=== PATIENT | female | born 2000 | race Caucasian/White ===

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

== ENCOUNTER 2025-02-20 00:24 | Emergency (ER) | payer OTHER, SELFPAY ==
[2025-02-20 00:32] VITALS: BP 146/98; PULSE 100; RESP 18; TEMP 36.6; O2SAT 98; BMI 51.0
[2025-02-20 02:17] LABS: MANUAL DIFF FLAG NO
[2025-02-20 02:18] LABS: Basophils Absolute Auto 0.1 X10*3/uL (0.0-0.2); Basophils Percent Auto 0.4 % (0-2); Eosinophils Absolute Auto 0.3 X10*3/uL (0.0-0.4); Eosinophils Percent Auto 2.6 % (0-4); Hematocrit 40.3 % (37.0-47.0); Hemoglobin 13.4 g/dl (12.0-16.0); Imm Gran Abs Auto 0.06 X10*3/uL (0.00-0.03); Imm Gran Pct Auto 0.5 % (0.0-0.4); Lymphocytes Absolute Auto 3.2 X10*3/uL (1.2-4.9); Lymphocytes Percent Auto 25.6 % (20-40); Mean Corpuscular HGB Conc 33.3 g/dl (31.0-35.0); Mean Corpuscular Hemoglobin 29.3 pg (27.0-33.0); Mean Corpuscular Volume 88.2 fL (80.0-98.0); Mean Platelet Volume 9.4 fL (9.4-12.3); Monocytes Percent Auto 8.3 % (2-11); Neutrophils Absolute Auto 7.9 x10*3/uL (2.0-8.3); Neutrophils Percent Auto 62.6 % (45-73); Platelet Count 350 X10*3/uL (160-400); Red Blood Count 4.57 X10*6/uL (4.20-5.50); Red Cell Distribution Width 13.3 % (11.0-16.0); White Blood Count 12.6 X10*3/uL (4.8-10.8)
[2025-02-20 02:25] LABS: IDNOW Serial# 6674DD1D; Strep A Nucleic Acid Negative (Negative)
[2025-02-20 02:40] LABS: Alanine Aminotransferase 44 U/L (0-31); Albumin Level 3.8 g/dL (3.5-5.0); Alkaline Phosphatase 96 U/L (39-117); Anion Gap 12 (12-20); Aspartate Amino Transferase 27 U/L (5-31); Bilirubin Total 0.5 mg/dL (0.0-1.0); Blood Urea Nitrogen 11 mg/dL (9-16); Calcium 8.7 mg/dL (8.4-10.2); Carbon Dioxide 27 mmol/L (22-29); Chloride 106 mmol/L (96-108); Estimated Glomerular Filt Rate > 60; Glucose Random 165 mg/dL (60-115); Potassium 3.6 mmol/L (3.3-5.1); Sodium 141 mmol/L (135-145); Total Protein 7.1 g/dL (6.5-8.0)
[2025-02-20 02:54] LABS: Influenza A PCR NEGATIVE (Negative); Influenza B PCR NEGATIVE (Negative); Resp Syncy Virus RNA Qual PCR NEGATIVE (Negative); SARS COV2 PCR INHOUSE NEGATIVE (Negative)
[2025-02-20 03:39] VITALS: BP 116/70; PULSE 99; RESP 20; TEMP 36.8; O2SAT 99
--- NOTE | 2025-02-20 03:54 | PC.NURSE ---
no vomiting noted since arrival. vss. pt awaiting primary eval by ed provider.
--- NOTE | 2025-02-20 05:29 | PC.NURSE ---
pt aware and agreeable to waiting for primary ed provider eval. pt requested light off and door closed, states wants to sleep while waiting. nad. call [facility] within reach.
[2025-02-20 08:00] VITALS: BP 140/70; PULSE 90; RESP 16; TEMP 36.4; O2SAT 96
--- NOTE | 2025-02-20 08:29 | ED.URI ---
HPI - URI/Sore Throat General Chief Complaint: Upper Respiratory Symptoms Stated Complaint: vomiting Time Seen by Provider: 02/20/25 08:07 Source: patient, RN notes reviewed and old records reviewed Mode of arrival: ambulatory History of Present Illness ED Provider: Sabiha Blanca PA-C HPI Narrative: 24-year-old female with a past medical history of ADHD, depression, anxiety, PCOS, presenting to the ED complaining of nasal congestion, rhinorrhea, headache, dry cough, nausea, vomiting, post-tussive emesis x 3 days. Denies fever, chills, ear pain, abdominal pain, diarrhea, dysuria /hematuria, travel, sick contacts, CP/SOB Related Data Previous Rx's ?Medication ?Instructions ?Recorded cetirizine 10 mg capsule 10 mg PO DAILY PRN allergy 07/08/20 symptoms #20 caps sulfacetamide sodium 10 % eye drops 1 drp ophthalmic (eye) Q3H #15 mL 07/08/20 prednisone 20 mg tablet 40 mg (2 x 20 mg) PO DAILY #10 tabs 07/27/20 benzonatate 100 mg capsule 100 mg PO TID PRN cough #14 caps 02/20/25 fluticasone propionate 50 2 spray intranasal DAILY #16 grams 02/20/25 mcg/actuation nasal spray,suspension (Flonase Allergy Relief) Allergies Allergy/AdvReac Type Severity Reaction Status Date / Time No Known Allergies Allergy Verified 02/20/25 00:34 [No Known Allergies*] Review of Systems Review of Systems: Yes all other systems are reviewed and are negative Constitutional: Constitutional: Reports as per [facility] Past Medical History Attestation statement: The following information was validated with the patient. Source: old records reviewed Medical History ADHD Depression Anxiety PCOS (polycystic ovarian syndrome) Social History Social History Advance Directives: No Advance Directives Information Provided: No Do you have a plan to hurt others: No Plan Physical Exam Vital Signs: Vital Signs: Last Vital Signs Temp 97.6 F 02/20/25 08:45 Pulse 90 02/20/25 08:45 Resp 16 02/20/25 08:45 BP 140/70 H 02/20/25 08:45 Pulse Ox 96 02/20/25 08:45 O2 Del Method Room Air 02/20/25 08:45 BMI result Body Mass Index 51.0 Const: General: cooperative, healthy appearing and no acute distress Orientation/consciousness: patient oriented x3 Limitations: no limitations HEENT: Head: Yes normal to inspection and Yes atraumatic Ears: hearing grossly normal bilaterally, external ears normal and TM's normal bilaterally General nose exam: Normal external nose present Face and sinus: Yes normal facial exam Mouth: Normal oral and palatal mucosa present and no drooling Throat: Yes posterior oropharynx normal, Yes tonsils normal, Yes uvula midline, No uvula laterally displaced and No uvular edema Eyes: General: appearance normal, both eyes and all related structures EOM: EOMs intact bilaterally Neck: Neck: Yes normal visual inspection and Yes no meningeal signs Resp: Effort & Inspection: normal respiratory effort and no respiratory distress Auscultation: clear to auscultation bilaterally, no crackles, no rales and no wheezes Cardio: Rate: regular rate Heart sounds: S1 normal heart sound present and S2 normal heart sound present GI: Inspection: Yes normal to inspection Palpation (GI): Soft to palpation, nontender, no guarding and not rigid Skin: Rashes: no rashes Wounds: no wounds Neuro: General: patient oriented x3, tone normal and no meningeal signs Cranial nerves: Yes CN's II-XII intact bilaterally Gait exam (Neuro): Normal gait present Extrem: General: Yes normal to inspection Course Course Course Narrative: -0832-- mild leukocytosis of 12.6. Labs otherwise reassuring. Viral testing and rapid strep negative > patient tolerating p.o. in the ED Results discussed with patient including worrisome signs and symptoms and strict return precautions, and when to return to the emergency department. They verbalized understanding and feel safe for discharge at this time. Medical Decision Making Medical Decision Making MDM Narrative: 24-year-old female with a past medical history of ADHD, depression, anxiety, PCOS, presenting to the ED complaining of nasal congestion, rhinorrhea, headache, dry cough, nausea, vomiting, post-tussive emesis x 3 days. on exam vital signs stable, NAD, nontoxic appearing, lungs CTA, oropharynx WNL, abdomen is soft and nontender. Patient denies any episodes of emesis since ED arrival. Concern for viral illness vs gastroenteritis. Low suspicion for [employer]/retropharyngeal abscess, ACS/ PE, intra-abdominal pathology including appendicitis / diverticulitis. Rule out pneumonia /bronchitis Plan: Labs, viral testing, rapid strep, p.o. trial Please refer to course for remaining clinical decision making, interpretation of labs/imaging results, and discussions with consultants and/or family members. Differential Diagnosis Differential Diagnoses: The differential diagnosis associated with the presentation includes As above Admission/Observation Consideration of admission/observation: Escalation of care including admission/observation considered Lab Data MDM Lab Attestation statement: I reviewed the patient's lab results. 02/20/25 02:06 02/20/25 02:06 Labs: Lab Results 02/20/25 Range/Units 02:06 WBC 12.6 H (4.8-10.8) X10*3/uL RBC 4.57 (4.20-5.50) X10*6/uL Hgb 13.4 (12.0-16.0) g/dl Hct 40.3 (37.0-47.0) % MCV 88.2 (80.0-98.0) fL MCH 29.3 (27.0-33.0) pg MCHC 33.3 (31.0-35.0) g/dl RDW 13.3 (11.0-16.0) % Plt Count 350 (160-400) X10*3/uL MPV 9.4 (9.4-12.3) fL Immature Gran % (Auto) 0.5 H (0.0-0.4) % Neut % (Auto) 62.6 (45-73) % Lymph % (Auto) 25.6 (20-40) % Hamilton % (Auto) 8.3 (2-11) % Eos % (Auto) 2.6 (0-4) % Baso % (Auto) 0.4 (0-2) % Lymph # (Auto) 3.2 (1.2-4.9) X10*3/uL Hamilton # (Auto) 1.0 (0.1-1.2) X10*3/uL Eos # (Auto) 0.3 (0.0-0.4) X10*3/uL Baso # (Auto) 0.1 (0.0-0.2) X10*3/uL Abs Immat Gran (auto) 0.06 H (0.00-0.03) X10*3/uL Absolute Neuts (auto) 7.9 (2.0-8.3) x10*3/uL Absolute Nucleated RBC 0.000 (0.0-0.012) X10*3/uL Nucleated RBC % (auto) 0.0 (0.0-0.2) /100WBC Sodium 141 (135-145) mmol/L Potassium 3.6 (3.3-5.1) mmol/L Chloride 106 (96-108) mmol/L Carbon Dioxide 27 (22-29) mmol/L Anion Gap 12 (12-20) BUN 11 (9-16) mg/dL Creatinine 0.72 (0.5-1.4) mg/dL Estim Creat Clear Calc 149.0 Estimated GFR > 60 Random Glucose 165 H (60-115) mg/dL Calcium 8.7 (8.4-10.2) mg/dL Total Bilirubin 0.5 (0.0-1.0) mg/dL AST 27 (5-31) U/L ALT 44 H (0-31) U/L Alkaline Phosphatase 96 (39-117) U/L Total Protein 7.1 (6.5-8.0) g/dL Albumin 3.8 (3.5-5.0) g/dL Influenza Type A (PCR) NEGATIVE (Negative) Influenza Type B (PCR) NEGATIVE (Negative) RSV RNA Qual (PCR) NEGATIVE (Negative) SARS-CoV-2 RNA (RT-PCR) NEGATIVE (Negative) S. pyogenes GrpA GREG Negative (Negative) Radiology Impression Discussion of test interpretation with radiology: I have reviewed the radiologist's reading. External Record Review External record reviewed: Inpatient record, Office record, Outpatient record, Prior outpatient labs, Prior outpatient radiology, Primary care record and Outside ED record Tests considered The following testing was considered but not selected: As above Prescription Management I considered prescription management with: Pain Medication Social Determinants Patient?s care significantly limited by Social Determinants of Health including: Other Social Determinant of Health Discharge Plan Discharge Clinical Impression: Upper respiratory infection Patient Disposition: Home, Self-Care Instructions: Viral Syndrome (ED) Additional Instructions: your blood work was reassuring You tested negative for COVID, flu, RSV and strep throat Tessalon Perles for cough, take as needed Flonase as a nasal decongestant Rest Stay hydrated Take Tylenol and ibuprofen at home Follow up with your doctor If symptoms persist or worsen return to the emergency department Prescriptions: New benzonatate 100 mg capsule 100 mg PO TID PRN (Reason: cough) Qty: 14 0RF fluticasone propionate [Flonase Allergy Relief] 50 mcg/actuation spray,suspension 2 spray intranasal DAILY Qty: 16 0RF Rx Instructions: administer into each nostril No Action sulfacetamide sodium 10 % drops 1 drp ophthalmic (eye) Q3H Qty: 15 0RF cetirizine 10 mg capsule 10 mg PO DAILY PRN (Reason: allergy symptoms) Qty: 20 0RF prednisone 20 mg tablet 40 mg PO DAILY Qty: 10 0RF Referrals: Physician,Unknown J [Primary Care Provider] - Stand Alone Forms: Work/School Release Interventions: ED Discharge Assessment Last Done: 02/20/25 08:45 Discharge Date/Time: 02/20/25 08:45 Print Language: Bol[place]ian
[2025-02-20 08:45] VITALS: BP 140/70; PULSE 90; RESP 16; TEMP 36.4; O2SAT 96
== END 2025-02-20 08:45 | disposition home or self-care (01) ==
PROVIDERS: Emergency Provider Emergency Medicine
DX: J06.9 Acute upper respiratory infection, unspecified (principal); J02.9 Acute pharyngitis, unspecified; Z03.818 Encounter for observation for suspected exposure to other biological agents ruled out
CPT/HCPCS: 0241U; 80053; 85025; 87651; 99283

== ENCOUNTER 2025-06-03 08:36 | Emergency (ER) | payer OTHER, SELFPAY ==
--- NOTE | 2025-06-03 08:41 | ED_ITS ---
HPI - General Adult General Chief complaint: Upper Respiratory Symptoms Stated complaint: exposed to covid body aches congestion Time Seen by Provider: 06/03/25 08:41 Source: patient Mode of arrival: ambulatory Limitations: no limitations History of Present Illness ED Provider: Mechelle Hernandez PA-C HPI narrative: Patient is a 25 year old assigned female at with a history of PCOS pres enting to the emergency department today with a headache, nasal congestion, ear pain, and recent COVID-19 exposure. Patient states that she has felt generally unwell as she has been around her COVID-19 positive mother. Patient denies any other complaints at this time. Related Data Previous Rx's ?Medication ?Instructions ?Recorded cetirizine 10 mg capsule 10 mg PO DAILY PRN allergy 1 symptoms #20 caps sulfacetamide sodium 10 % eye drops 1 drp ophthalmic ( eye) Q3H #15 mL 07/08/20 prednisone 20 mg tablet 40 mg (2 x 20 mg) PO DAILY # 10 tabs 07/27/20 benzonatate 100 mg capsule 100 mg PO TID PRN cough #14 caps 02/20/25 fluticasone propionate 50 2 spray intranasal DAILY #16 grams 02/20/25 mcg/actuation nasal spray,suspension (Flonase Allergy Relief) Allergies Allergy/AdvReac Type Severity Reaction Status Date / Time No Known Allergies (No Known Allergy Verified 06/03/25 08:47 Allergies*) Review of Systems Constitutional: Constitutional: Reports as per HPI Eyes: Eyes: Reports as per HPI ENT: Reports as per HPI Cardiovascular: Cardiovascular: Reports as per HPI Respiratory: Respiratory: Reports as per HPI Gastrointestinal: Gastrointestinal: Reports as per HPI Genitourinary: Genitourinary: Reports as per HPI Musculoskeletal: Musculoskeletal: Reports as per HPI Integumentary/Breasts: Skin/Breast: Reports as per HPI Neurologic: Reports as per HPI Psychiatric: Psychiatric: Reports as per HPI Endocrine: Endocrine: Reports as per HPI Hematologic/Lymphatic: Hematologic/Lymphatic: Reports as per HPI Allergic/Immunologic: Allergic/Immunologic: Reports as per HPI PMFSH Past Medical History Attestation statement: The following information was validated with the patient. Source: old records reviewed and nursing notes reviewed Medical History ADHD Depression Anxiety PCOS (polycystic ovarian syndrome) Social History Social History Advance Directives: No Advance Directives Information Provided: Yes Physical Exam ED Vital Signs: Vital Signs - 24 hr 06/03/25 08:43 06/03/25 10:29 Temperature 98.3 F 98.3 F Pulse Rate 84 84 Respiratory Rate 20 20 Blood Pressure 141/83 H 141/83 H Pulse Oximetry 96 96 Oxygen Delivery Method Room Air Room Air BMI result Body Mass Index 44.0 Const General: cooperative, no acute distress, alert and awake Nutritional Appearance: well nourished Orientation/consciousness: patient oriented x3 HENMT Head: Yes normal to inspection and Yes atraumatic Ears: hearing grossly normal bilaterally and external ears normal General nose exam: Normal external nose present, no nasal discharge noted and no epistaxis Face and sinus: Yes normal facial exam, No abrasion and No laceration Mouth: Normal oral and palatal mucosa present, no drooling and no muffled voice Eyes General: appearance normal, both eyes and all related structures Periorbital: periorbital findings normal Eyelids: Yes eyelids normal Conjunctivae: conjunctivae normal Pupils: Equal, round and reactive pupils present EOM: EOMs intact bilaterally Neck Neck: Yes normal visual inspection and Yes full ROM Resp Effort & Inspection: normal respiratory effort and able to speak in complete sentences Neuro General: patient oriented x3, moves all extremities and CN's II-XI intact bilaterally Cranial nerves: Yes Equal, round and reactive pupils present Cognition (Neuro): normal cognition Extrem General: Yes normal to inspection, Yes full ROM and Yes capillary refill normal Psych Appearance: grossly normal Mental Status: mental status grossly normal Affect: normal affect Attitude: cooperative Thought process: Normal thought process present Thought content: Normal thought content present Insight: Good insight present (Psych) Medical Decision Making Medical Decision Making MDM Narrative: Patient is a 25 year old assigned female at with a history of PCOS presenting to the emergency department today with a headache, nasal congestion, ear pain, and recent COVID-19 exposure. Patient's physical exam was un remarkable. Patient's COVID-19 and influenza tests were negative. Patient's clinical presentation is most consistent with a viral illness. I explained my physical exam findings as well as all test results to the patient. I answered all questions asked by the patient. I stressed the importance of the patient taking her medication as directed (either prescribed or as the over the counter packaging recommends). I stressed the importance of the patient following up with her primary care provider. I stressed the importance of the patient returning to the emergency department immediately if her symptoms were to worsen or if she were to develop any dizziness, shortness of breath, difficulty breathing, chest pain, blurry vision, loss of vision, nausea, vomiting, abdominal pain, fever, chills, back pain, or any other complaints. Patient verbalized agreement and understanding with this treatment plan and discharge. Differential Diagnosis Differential Diagnoses: The differential diagnosis associated with the presentation includes Viral illness COVID-19 Influenza Admission/Observation Consideration of admission/observation: Escalation of care including admission/observation considered Patient would have been admitted to the hospital had her work up had any findings where hospital admission was appropriate and her clinical presentation warranted hospital admission. Lab Data MDM Lab Attestation statement: I reviewed the patient's lab results. My interpretation of these studies and their corresponding values is that they are grossly normal. Labs: Lab Results 06/03/25 Range/Units 09:01 COVID-19 (RAGHAVENDRA) Negative (Negative) COVID-19 Clin Com See Note Influenza Type A (GREG) Negative (Negative) Influenza Type B (GREG) Negative (Negative) Influenza A & B Note See Note Discharge Plan Discharge Clinical Impression: Viral infection Patient Disposition: Home, Self-Care Instructions: Viral Syndrome (ED) Additional Instructions: Your COVID-19 test was negative however, you have symptoms and close exposure so you should treat yourself as if you have it. IF you are prescribed home medications and/or you are taking over the counter medications at home - it is very important you continue to do so as prescribed / directed unless told otherwise. Follow up with a primary care provider. Return to the emergency department immediately if your symptoms worsen or if you develop any numbness, tingling, dizziness, shortness of breath, difficulty breathing, chest pain, blurry vision, loss of vision, nausea, vomiting, abdominal pain, fever, chills, back pain, or any other complaints. If you do not have a primary care provider - call any of the below numbers to establish and follow up with a primary care provider. [facility] [place] [phone] [place] [address] [place], [address] [facility] [place] [place] [place] [phone] [place] [address], [address] [place], [address] [facility] [place] [place] [place] [phone] [place] [address], [address] [place], [address] [facility] [place] [place] [phone] [place] [address] [address] [facility], [address] [facility] [place] [phone] [place] [address], [address] Please see the information below about our Patient Portal. If you are not yet enrolled in the [facility] Patient Portal, you will receive an enrollment email invitation following your visit to any [facility] [place] ED setting. You may also self-enroll in the Patient Portal by visiting our website: [email or web address] The following information is required to access the Patient Portal: - Your [facility] [place] [place] - Your personal home email address (must match what is in your electronic medical record, Registration staff can assist with this) - Name - Date of Capabilities of the Patient Portal: - Message some providers - View upcoming appointments - Access your health summary, medical history, and visit history - View current conditions and allergies - View procedure and lab results - View your medications, including guidelines, side effects, and precautions - Complete pre-appointment questionnaires requested by your provider - Ready summary reports of your office visits and procedures To access the Patient Portal Mobile Brannon, follow these directions: - Search [employer] in the Brannon Store or [employer]ks[employer] Store - Download the Brannon - Search for [facility] - Enter your login/password Prescriptions: No Action sulfacetamide sodium 10 % drops 1 drp ophthalmic (eye) Q3H Qty: 15 0RF cetirizine 10 mg capsule 10 mg PO DAILY PRN (Reason: allergy symptoms) Qty: 20 0RF prednisone 20 mg tablet 40 mg PO DAILY Qty: 10 0RF benzonatate 100 mg capsule 100 mg PO TID PRN (Reason: cough) Qty: 14 0RF fluticasone propionate [Flonase Allergy Relief] 50 mcg/actuation spray, suspension 2 spray intranasal DAILY Qty: 16 0RF Rx Instructions: administer into each nostril Stand Alone Forms: Work/School Release Interventions: ED Discharge Assessment Last Done: 06/03/25 10:29 Discharge Date/Time: 06/03/25 10:29 Print Language: Bangladeshi
[2025-06-03 08:43] VITALS: BP 141/83; PULSE 84; RESP 20; TEMP 36.8; O2SAT 96; BMI 44.0
[2025-06-03 09:24] LABS: COVID-19 Test Negative (Negative); IDNOW Serial# 6674DD1D
[2025-06-03 09:25] LABS: IDNOW Serial# 55D5AD1C; Influenza B2 Negative (Negative)
--- OUTSIDE RECORDS SUMMARY | 2025-06-03 09:35 | XMS_ITS | Clinical Summary ---
Author Organization [employer] Address [address] [facility] [address] [place] [address] Care Team Providers Care Triage Technician Name Role Phone Unavailable Primary Care Provider Unavailabl e Allergies No known active allergies Medications FLUoxetine (PROzac) 40 MG capsule Take 1 capsule by mouth at bed time. Active methylphenidate ER (Concerta) 36 MG CR tablet Take 1 tablet by mouth at bed time. Active norgestimate-et hinyl estradiol (Tri-Estarylla) 0.18/0.215/0.25 MG-35 MCG tablet Take 1 tablet by mouth. 2 Active tacrolimus (Protopic) 0.03 % ointment See Instructions, APPLY TO AFFECTED AREA TWICE A DAY, # 30 Gm, 0 Refills, Maintenance, 08/10/22 12:29:00 EST, [facility]/pharmacy #[id number], APPLY TO AFFECTED AREA TWICE A DAY, 156, cm, 06/20/22 9:38:00 EDT, Height, 111.54, kg, 01/09/22 8:25:00 EDT, Dry Weight 2 Active hydrocortisone 2.5 % lotion Apply topically. 2 Active cetirizine (ZyrTEC) 10 MG tablet Take 10 mg by mouth. 2 Active Albuterol Sulfate (PROAIR HFA IN) Inhale. 2 Active Spacer/Aero-Hol ding Chambers (AeroChamber Mini Chamber) device AeroChamber, See Instructions, # 1 each, Refills 0, Tot. Refills 0, Maintenance, Use as directed with MDIs Dx asthma, 01/09/22 9:33:00 EDT, Compound, 156, cm, 03/23/21 13:07:00 EDT, Height, 111.54, kg, 01/09/22 8:25:00 EDT, Dry Weight 2 Active hydrOXYzine pamoate (Vistaril) 25 MG capsule TAKE 1 CAPSULE BY MOUTH TWICE A DAY NEEDED 3 Active hydrocortisone 1 % cream 1 APPLICATION TOPICALLY 2 TIMES A DAY,X7 DAYS 3 Active PARoxetine (Paxil) 10 MG tablet Take 10 mg by mouth in the morning. 3 Active [facility] Saline Nasal [place] 0.65 % nasal spray INSTILL 2 SPRAYS INTO BOTH NOSTRILS 4 TIMES DAILY 3 Active fluticasone (Flonase) 50 MCG/ACT nasal spray SPRAY 2 SPRAYS INTO EACH NOSTRIL EVERY MORNING 3 Active escitalopram (Lexapro) 10 MG tablet TAKE ONE HALF (0.5) TABLETS BY MOUTH DAILY 3 Active benzonatate (Tessalon) 100 MG capsule TAKE 1-2 CAPSULES BY MOUTH 3 TIMES DAILY NEEDED FOR COUGH 3 Active albuterol (Ventolin HFA) 108 (90 Base) MCG/ACT inhaler Inhale. 3 Active Active Problems No known active problems Immunizations Immunization Administration Dates Next Due Influenza injectable quadrivalent preservative f ree 09/19/2023 Social History Tobacco Use Types Packs/Day Years Used Date Smoking Tobacco: Never Smokeless Tobacco: Never Tobacco Cessation:Counseling Given: Not Answered Comments Unknown Sex and Gender Information Value Date Recorded Sex Assigned at Female 07/30/2022 10:34 AM EDT Legal Sex Female 10:34 AM EDT Gender Identity Female 07/30/2022 10:34 AM EDT Sexual Orientation Bisexual 07/30/2022 10 :34 AM EDT Plan of Treatment Health Maintenance Due Date Last Done Comments Depression Screening 2001 HIV Screening 2001 Lipid Panel 2001 SDOH Screening 2001 Disability Screening 2001 Alcohol/Substance Use Screening 2013 Family Planning (PISQ) 2016 Hepatitis C Screening 2019 Pneumococcal Vaccine: Pediatrics (0 to 5 Years) and At-Risk Patients (6 to 49) Years (1 of 2 - PCV) 2020 06/03/2003, 02/16/2003, 2001, Additional history exists Pap Smear 2022 Tobacco Screening 03/08/2024 03/08/2023 COVID-19 Vaccine ( - 2024- season) 2025 05/26/2021, 05/05/2021 Influenza Vaccine (#1) 2025 , 01/09/2022, 01/09/2022, Additional history exists DTaP/Tdap/Td Vaccines (8 - Td or Tdap) 06/20/2032 06/20/2022, 09/10/2012, 02/08/2006, Additional history exists Zoster Vaccines (1 of 2) 2051 RSV Patients and Patients Aged 60 years or older (1 - 1-dose 75+ series) 2076 Hepatitis B Vaccines Completed 03/05/2002, 03/05/2002, 2001, Additional history exists HIB Vaccines Completed 06/23/2002, 06/01, 03/05/2002, Additional history exists IPV Vaccines Completed 02/08/2006, 06/01, 03/05/2002, Additional history exists Hepatitis A Vaccines Completed 05/08/2017, 10/16/2013, 10/16/2013 Meningococcal Vaccine Completed 01/28/2019 , 09/10/2012, 09/10/2012 HPV Vaccines Completed 11/21/2020, 11/01, 06/20/2020, Additional history exists Meningococcal B Vaccine Aged Out No l onger eligible based on patient's age to complete this topic RSV under 20 months Aged Out No longe r eligible based on patient's age to complete this topic Rotavirus Vaccines Aged Out No longer eligible based on patient's age to complete this topic Insurance [employer] [place] [id number] [place] [id number] [place]
[2025-06-03 10:29] VITALS: BP 141/83; PULSE 84; RESP 20; TEMP 36.8; O2SAT 96
== END 2025-06-03 10:29 | disposition home or self-care (01) ==
PROVIDERS: Physician Assistant Medical; Emergency Provider Emergency Medicine
DX: B34.9 Viral infection, unspecified (principal)
CPT/HCPCS: 87502; 87635; 99282; 99283